=== PATIENT | male | born 1945 | race Caucasian/White ===

== ENCOUNTER → 2018-03-21 | Outpatient (CLI) | payer MEDICARE, BC ==
[~2018-03-21] MED LIST: GLUCOPHAGE500 MG/TAB PO; LEVAQUIN 5500 MG/TA1 PO; NEXIUM PO; NORCO 325 MG-51 TAB PO
== END ==
LOC: SUN.DIA 12:45
DX: E11.9 Type 2 diabetes mellitus without complications (principal); Z68.27 Body mass index [BMI] 27.0-27.9, adult; Z71.3 Dietary counseling and surveillance; Z87.891 Personal history of nicotine dependence
CPT/HCPCS: G0108

== ENCOUNTER → 2018-04-11 | Outpatient (CLI) | payer MEDICARE, BC | LOC: SUN.DIA 10:53 | DX: E11.9 Type 2 diabetes mellitus without complications (principal) ==

== ENCOUNTER 2018-04-24 08:40 | Outpatient (RCR) | payer MEDICARE, BC | END 2018-07-23 | disposition home or self-care (01) | LOC: WSST | DX: R13.10 Dysphagia, unspecified (principal) | CPT/HCPCS: G8996-GN; G8997-GN ==

== ENCOUNTER → 2019-01-22 | Outpatient (CLI) | payer MEDICARE, BC | LOC: COL.RAD 11:05 | DX: M16.11 Unilateral primary osteoarthritis, right hip (principal); M51.36 Other intervertebral disc degeneration, lumbar region; Z90.49 Acquired absence of other specified parts of digestive tract ==